=== PATIENT | male | born 1955 | race Caucasian/White ===

== ENCOUNTER 2017-10-03 19:09 | Observation (INO) | payer OTHER, SELFPAY ==
[2017-10-03] VITALS (13 sets, daily range): BP systolic 125–192; BP diastolic 63–108; PULSE 60–78; RESP 16–18; TEMP 36.2–36.7; O2SAT 95–96; BMI 30.2; BMI 29.7
--- NOTE | 2017-10-03 19:24 | RAD_ITS ---
STUDY: X-RAY CHEST REASON FOR EXAM: Male, 62 years old. Chest pain TECHNIQUE: Single AP portable view of the chest. COMPARISON: None. FINDINGS: The lungs are clear and expanded. There is no demonstrated pleural abnormality. Normal size heart. Normal mediastinum and griselda. Normal visualized pulmonary arteries. Normal visualized aortic arch and descending thoracic aorta. Normal visualized thoracic spine. Normal visualized ribs, clavicles, and shoulders. There is no demonstrated abnormality of the visualized soft tissue structures of the upper abdomen. RAD/Chest 1 View (Portable) IMPRESSION: Normal x-ray examination of the chest. Electronically Signed: Cj Washington MD at 19:56 EDT , Service support ,
--- NOTE | 2017-10-03 19:24 | EKG12_ITS ---
Test Reason : CP Blood Pressure : / mmHG Vent. Rate : 072 BPM Atrial Rate : 072 BPM P-R Int : 154 ms QRS Dur : 078 ms QT Int : 380 ms P-R-T Axes : 054 046 061 degrees QTc Int : 416 ms Normal sinus rhythm Nonspecific T wave abnormality Abnormal ECG Confirmed by RAJAT SCHREIBER MD ([id number]), supervising editor news reel EUNICE RAY ([id number]) on 10/06/2017 2:30:31 PM Referred By: CONCHIS Confirmed By:RAJAT SCHREIBER MD
--- NOTE | 2017-10-03 19:25 | ED.VISSUMM ---
- ER Visit Summary Date of Service: 10/03/17 Chief Complaint: Chest pain History of Present Illness: The patient is a 62 M sudden substernal chest pain starting 2 hours ago. Symptoms started after eating shoveling dirt. Pain into his upper back. States was nausea, shortness of breath, and had some sweats. No IA history. History of diabetes and hypercholesterolemia. No tobacco history. No family history of IA at young age. States had a left DVT 4 years ago after surgery. Was on anticoagulation at that time. No stress test in over 10 years. Denies previous similar symptoms in the past. Did take a baby aspirin prior to arrival. States pain is a 5 out of 10 currently. Physical Examination: General: Alert and oriented ?3, no acute distress HEENT: Normocephalic, atraumatic. Moist mucosa membranes Neck: supple, nontender. Cardiovascular: Regular rate and rhythm, no murmurs Respiratory: Normal breath sounds, symmetric, no distress Abdomen: Soft, nontender, nondistended Extremities: Nontender, no edema, pulses intact ?4 Neuro: no focal neurological deficits. is Test Results: EKG: Sinus rate of 72. No ST changes. T-wave bimodal anterior leads. Chest x-ray negative. Cardiac workup including troponin negative Emergency Department Course and Treatment: EKG noted T-wave bimodal changes on the anterior leads. No old for comparison. Cardiac workup initiated. This is negative. Given additional aspirin, nitro ?2 sublingual with improvement of symptoms. Nitro paste was placed. Heart scores a 5. SHANTANU scores a 1. Discuss with hospitalist for admission for cardiac rule out. Treatment Plan: [] Disposition: Admission Impression: 1. Acute chest pain 2. Abnormal EKG This note was generated with [employer] dictation software. It may contain incorrect words, spelling, and punctuation that were not noted in review of the chart prior to signing ED Disposition - Plan for ED Patient: Disposition: Acute Care Hospital [facility] Chief Complaint: Chest Pain Diagnosis: Acute chest pain, Abnormal EKG
--- NOTE | 2017-10-03 19:29 | ED.DCSUM_ITS ---
- ER Visit Summary Date of Service: 10/03/17 Chief Complaint: Chest pain History of Present Illness: The patient is a 62 M sudden substernal chest pain starting 2 hours ago. Symptoms started after eating shoveling dirt. Pain into his upper back. States was nausea, shortness of breath, and had some sweats. No NV history. History of diabetes and hypercholesterolemia. No tobacco history. No family history of NV at young age. States had a left DVT 4 years ago after surgery. Was on anticoagulation at that time. No stress test in over 10 years. Denies previous similar symptoms in the past. Did take a baby aspirin prior to arrival. States pain is a 5 out of 10 currently. Physical Examination: General: Alert and oriented ?3, no acute distress HEENT: Normocephalic, atraumatic. Moist mucosa membranes Neck: supple, nontender. Cardiovascular: Regular rate and rhythm, no murmurs Respiratory: Normal breath sounds, symmetric, no distress Abdomen: Soft, nontender, nondistended Extremities: Nontender, no edema, pulses intact ?4 Neuro: no focal neurological deficits. is Test Results: EKG: Sinus rate of 72. No ST changes. T-wave bimodal anterior leads. Chest x-ray negative. Cardiac workup including troponin negative Emergency Department Course and Treatment: EKG noted T-wave bimodal changes on the anterior leads. No old for comparison. Cardiac workup initiated. This is negative. Given additional aspirin, nitro ?2 sublingual with improvement of symptoms. Nitro paste was placed. Heart scores a 5. SHANTANU scores a 1. Discuss with hospitalist for admission for cardiac rule out. Treatment Plan: [] Disposition: Admission Impression: 1. Acute chest pain 2. Abnormal EKG This note was generated with [employer] dictation software. It may contain incorrect words, spelling, and punctuation that were not noted in review of the chart prior to signing ED Disposition - Plan for ED Patient: Disposition: Acute Care Hospital [facility] Chief Complaint: Chest Pain Diagnosis: Acute chest pain, Abnormal EKG
[2017-10-03] MEDS: Aspirin 81 MG TAB.CHEW 273 MG PO (19:38)
[2017-10-03 19:57] LABS: Absolute Lymphocyte Count 3.31 X10^3/ul (0.83-4.51); Absolute Neutrophil Count 5.2 X10^3/uL (2.0-7.7); Basophil# 0.04 X10^3/uL; Basophil% 0.4 % (0-1); Eosinophil# 0.21 X10^3/uL; Eosinophils% 2.1 % (0-5); Hematocrit 40.9 % (40-54); Hemoglobin 14.1 g/dl (13.0-16.5); Lymphocyte # 3.31 X10^3/ul (4.0); Lymphocyte % 33.6 % (19-41); Mean Corp Hgb Conc 34.5 g/gl (32-36); Mean Corpuscular Hgb 31.4 pg (27.0-32.0); Mean Corpuscular Volume 91.1 fL (80-94); Mean Platelet Vol. 10.8 fl (6.2-12.0); Monocyte# 1.14 X10^3/uL; Monocyte% 11.6 % (0-10); Neutrophil # 5.15 X10^3/uL (2.7-7.7); Neutrophil % 52.2 % (47-70); POSITIVE COUNT NO; POSITIVE DIFFERENTIAL NO; POSITIVE MORPHOLOGY NO; Platelet Count 307 K/mm3 (150-450); RBC Distribution Width SD 39.6 fl (35.1-43.9); Red Blood Count 4.49 M/mm3 (4.6-6.2); White Blood Count 9.9 K/mm3 (4.4-11.0)
[2017-10-03 20:09] LABS: Anion Gap 9 (5-15); BUN 30 mg/dL (7-18); BUN/Creat Ratio 25.4 RATIO (10-20); Chloride 109 mmol/L (98-107); Creatinine, Serum 1.18 mg/dL (0.70-1.30); EST Glomerular Filtration Rate 66 mL/min (>60); Est Glom Filt Rate - Afr Amer 80 mL/min (>60); Estimated Creatinine Clearance 61.19 ml/min; Glucose 140 mg/dL (74-106); Potassium 3.8 mmol/L (3.5-5.1); Sodium Level 141 mmol/L (136-145)
--- NOTE | 2017-10-03 20:18 | ED.RN ---
Addendum entered by Keri Villalobos 10/03/17 20:37: DR. ZELAYA. Original Note: PT DENIES PAIN AFTER [address] BREWSTER AWARE.
[2017-10-03] MEDS: Nitroglycerin Oint 1 INCH PACKET 0.5 INCH TRANSDERM. (20:24)
--- NOTE | 2017-10-03 20:49 | PCM.HP.STD ---
Problem List (1) HLD (hyperlipidemia) Status: Chronic Qualifiers: Hyperlipidemia type: unspecified Qualified Code(s): E78.5 - Hyperlipidemia, unspecified (2) Obesity (BMI 30.0-34.9) Status: Chronic (3) Diabetes mellitus, type II Status: Chronic Qualifiers: Diabetes mellitus regulatory compliance officer insulin use: without regulatory compliance officer use Diabetes mellitus complication status: without complication Qualified Code(s): E11.9 - Type 2 diabetes mellitus without complications (4) DVT (deep venous thrombosis) Status: Acute Qualifiers: DVT location: lower extremity Affected thrombotic vein of extremity: unspecified vein of extremity Chronicity: chronic Laterality: left Qualified Code(s): I82.502 - Chronic embolism and thrombosis of unspecified deep veins of left lower extremity Comment: DVT LLE following TURP remotely, recurrent DVT LLE following injury. 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 He is normally active with his work. In the ED work-up included AF,HR 60-70s, BP 147/71-->125/64, RR 18, 96% on RA, not marked appearing CBC, BMP w/ Chl 109, BUN/Cr 30/1.18, glucose 140, trop < 0.02, EKG w/ SR with non-specific T wave changes, CXR without acute findings. In the ED patient administered ASA, NG SL and nitrobid. Past Medical History Past Medical History (Chronic Problems): Chronic Problems HLD (hyperlipidemia) (Chronic) Obesity (BMI 30.0-34.9) (Chronic) Diabetes mellitus, type II (Chronic) Allergies azithromycin [From Zithromax] Allergy (Verified 10/03/17 19:18) Unknown Avbrrrn-Udk-Cpq Reductase Inhibitor Allergy (Verified 10/03/17 19:17) Pain in joints Home Medications: Ambulatory Orders Medication Instructions Recorded Cider Vinegar [Apple Cider Vinegar] 300 mg PO DAILY 10/03/17 Glimepiride [Amaryl] 8 mg PO DAILY 10/03/17 [place]-3 Fatty Acids [Fish Oil] 500 mg PO DAILY 10/03/17 Surgical History: - - TURP, left hydrocele surgery. Psychiatric History: No pertinent psych hx Lives: Spouse/ Significant Other, With Family Smoking Status: Never smoker Tobacco Use: Non-smoker Alcohol: Occasional Drugs: None Review of Systems Constitutional: Reports: Fatigue. Denies: Chills, Fever, Weight Change HEENT: Denies: Head Aches, Sinus Congestion, Sinus Drainage Cardiovascular: Reports: Chest Pain, Heaviness. Denies: Palpitations Respiratory: Reports: Shortness of Breath, Shortness of breath at rest, Shortness of breath upon exertion. Denies: Cough, Sputum production Gastrointestinal: Reports: Nausea. Denies: Abdominal Pain, Vomiting Genitourinary: Denies: Dysuria Musculoskeletal: Denies: Joint Pain, Joint Tenderness Skin: Denies: Rash, Wounds Neurological: Denies: Numbness, Tingling, Focal weakness Psychiatric: Denies: Anxiety, Depression, Homicidal Ideations, Suicidal Ideations Hematologic/ Lymphatic: Denies: Easy Bruising, Easy Bleeding VTE Information - Inpt Only VTE Present on Admission: No VTE Mechan Device Prophylaxis: SCD's VTE Pharm Prophylaxis ordered?: Yes Patient Problems: Active and Suspected Problems DVT (deep venous thrombosis) (Acute) DVT LLE following TURP remotely, recurrent DVT LLE following injury. Chest pain (Acute) Subjective: Seated upright in the ED bed, NAD, notes chest pain currently resolved. Objective: Physical Examination: General: awake, alert, oriented x 3 and cooperative, seated upright in bed in no apparent distress. Skin: normal color, turgor, no icterus, cyanosis, mild facial and scalp sunburn. HEENT: AT/NC, EOMI, PERRLA, mildly dry MM, no carotid bruits or JVD noted. Lungs: CTA bilaterally, moderate effort, mild decrease BL bases, no rales, ronchi or wheezing. Heart: Regular rate and rhythm; no gallop, rub audible. Abdomen: soft, obese, NTTP, ND, normal BS, no HSM. Extremities: no cyanosis, clubbing, or edema. Neurological: patient awake, alert, oriented x 3; cognitive function intact; pupils equally reactive to light and accomodation; cranial nerves II-XII grossly normal, moving all 4 extremities, no focal deficits, strength preserved. Psychiatric: affect appears normal, no acute evidence of depressive or anxiety feelings. - Physical Exam Vital Signs Temp Pulse Resp BP Pulse Ox 97.1 F L 64 18 126/68 H 96 10/03/17 19:10 10/03/17 20:24 10/03/17 20:16 10/03/17 20:24 10/03/17 20:16 Oxygen Delivery Method Room Air Weight: 199 lb 1.239 oz Body Mass Index (BMI) 30.2 Laboratory Tests Past 24 Hrs 10/03/17 10/03/17 19:11 19:11 WBC 9.9 RBC 4.49 L Hgb 14.1 Hct 40.9 MCV 91.1 MCH 31.4 MCHC 34.5 RDW 12.0 RDW Differential 39.6 Plt Count 307 MPV 10.8 Immature Gran % (Auto) 0.100 Neut % (Auto) 52.2 Lymph % (Auto) 33.6 [place] % (Auto) 11.6 H Eos % (Auto) 2.1 Baso % (Auto) 0.4 Absolute Neuts (auto) 5.2 Absolute Lymphs (auto) 3.31 Total Counted Not Reportable Sodium 141 Potassium 3.8 Chloride 109 H Carbon Dioxide 23.0 Anion Gap 9 BUN 30 H Creatinine 1.18 Estim Creat Clear Calc 61.19 Est GFR (MDRD) Af Amer 80 Est GFR (MDRD) Non-Af 66 BUN/Creatinine Ratio 25.4 H Glucose 140 H Calcium 9.0 Troponin I < 0.02 Assessment/Plan Active and Suspected Problems DVT (deep venous thrombosis) (Acute) DVT LLE following TURP remotely, recurrent DVT LLE following injury. 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 (1) Chest Pain: EKG in ED SR with non-specific T wave changes, CXR w/ no acute process, initial trop normal x 1. Will admit to PCU, place on a monitored bed to assure no acute myocardial infarction with serial cardiac enzymes and EKGs. Patient is able to perform exercise and does not have LBBB or V-pacing but does have ST-T changes with unclear wall motion abnormality at rest thus will proceed with AM nuclear exercise stress test. ASA, NG, morphine. FLP in AM. Mag pending. Given mild BUN increase, recent notable outside activity w/ elevated outside T, will given 1L NS upon admission. (2) Diabetes mellitus type II: Hold oral home regimen, ADA diet until NPO Thursday evening, accu checks w/ ISS, nutrition consulted for education and teaching. (3) Obesity: Weight loss and lifestyle changes encouraged, nutrition consulted for education and teaching. (5) Hyperlipidemia: Not on statin regimen. Hold lovaza, continue upon discharge. AM FLP. (6) History of Provoked LLE DVT: Noted history LLE DVT x 2 following surgery and injury, prophylaxis as noted. (7) History of Prostate CA: Noted dx ~ 11 years prior, s/p TURP, stable. (8) DVT Prophylaxis: SCDs, lovenox. Code Visit OBSV E&M: [id number] Initial observation care L3
--- NOTE | 2017-10-03 21:00 | HP.PCM_ITS ---
Problem List (1) HLD (hyperlipidemia) Status: Chronic Qualifiers: Hyperlipidemia type: unspecified Qualified Code(s): E78.5 - Hyperlipidemia , unspecified (2) Obesity (BMI 30.0-34.9) Status: Chronic (3) Diabetes mellitus, type II Status: Chronic Qualifiers: Diabetes mellitus prison insulin use: without terminal supervisor use Diabetes mellitus complication status: without complication Qualified Code(s): E11.9 - Type 2 diabetes mellitus without complications (4) DVT (deep venous thrombosis) Status: Acute Qualifiers: DVT location: lower extremity Affected thrombotic vein of extremity: unspecified vein of extremity Chronicity: chronic Laterality: left Qualified Code(s): I82.502 - Chronic embolism and thrombosis of unspecified deep veins of left lower extremity Comment: DVT LLE following TURP remotely, recurrent DVT LLE following injury. 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 He is normally active with his work. In the ED work-up included AF,HR 60-70s, BP 147/71-->125/64, RR 18, 96% on RA, not marked appearing CBC, BMP w/ Chl 109, BUN/Cr 30/1.18, glucose 140, trop < 0.02, EKG w/ SR with non-specific T wave changes, CXR without acute findings. In the ED patient administered ASA, NG SL and nitrobid. Past Medical History Past Medical History (Chronic Problems): Chronic Problems HLD (hyperlipidemia) (Chronic) Obesity (BMI 30.0-34.9) (Chronic) Diabetes mellitus, type II (Chronic) Allergies azithromycin [From Zithromax] Allergy (Verified 10/03/17 19:18) Unknown Epljnrq-Biq-Dxf Reductase Inhibitor Allergy (Verified 10/03/17 19:17) Pain in joints Home Medications: Ambulatory Orders Medication Instructions Recorded Cider Vinegar [Apple Cider Vinegar] 300 mg PO DAILY 10/03/17 Glimepiride [Amaryl] 8 mg PO DAILY 10/03/17 [place]-3 Fatty Acids [Fish Oil] 500 mg PO DAILY 10/03/17 Surgical History: - - TURP, left hydrocele surgery. Psychiatric History: No pertinent psych hx Lives: Spouse/ Significant Other, With Family Smoking Status: Never smoker Tobacco Use: Non-smoker Alcohol: Occasional Drugs: None Review of Systems Constitutional: Reports: Fatigue. Denies: Chills, Fever, Weight Change HEENT: Denies: Head Aches, Sinus Congestion, Sinus Drainage Cardiovascular: Reports: Chest Pain, Heaviness. Denies: Palpitations Respiratory: Reports: Shortness of Breath, Shortness of breath at rest, Shortness of breath upon exertion. Denies: Cough, Sputum production Gastrointestinal: Reports: Nausea. Denies: Abdominal Pain, Vomiting Genitourinary: Denies: Dysuria Musculoskeletal: Denies: Joint Pain, Joint Tenderness Skin: Denies: Rash, Wounds Neurological: Denies: Numbness, Tingling, Focal weakness Psychiatric: Denies: Anxiety, Depression, Homicidal Ideations, Suicidal Ideations Hematologic/ Lymphatic: Denies: Easy Bruising, Easy Bleeding VTE Information - Inpt Only VTE Present on Admission: No VTE Mechan Device Prophylaxis: SCD's VTE Pharm Prophylaxis ordered?: Yes Patient Problems: Active and Suspected Problems DVT (deep venous thrombosis) (Acute) DVT LLE following TURP remotely, recurrent DVT LLE following injury. Chest pain (Acute) Subjective: Seated upright in the ED bed, NAD, notes chest pain currently resolved. Objective: Physical Examination: General: awake, alert, oriented x 3 and cooperative, seated upright in bed in no apparent distress. Skin: normal color, turgor, no icterus, cyanosis, mild facial and scalp sunburn. HEENT: AT/NC, EOMI, PERRLA, mildly dry MM, no carotid bruits or JVD noted. Lungs: CTA bilaterally, moderate effort, mild decrease BL bases, no rales, ronchi or wheezing. Heart: Regular rate and rhythm; no gallop, rub audible. Abdomen: soft, obese, NTTP, ND, normal BS, no HSM. Extremities: no cyanosis, clubbing, or edema. Neurological: patient awake, alert, oriented x 3; cognitive function intact; pupils equally reactive to light and accomodation; cranial nerves II-XII grossly normal, moving all 4 extremities, no focal deficits, strength preserved. Psychiatric: affect appears normal, no acute evidence of depressive or anxiety feelings. - Physical Exam Vital Signs Temp Pulse Resp BP Pulse Ox 97.1 F L 64 18 126/68 H 96 10/03/17 19:10 10/03/17 20:24 10/03/17 20:16 10/03/17 20:24 10/03/17 20:16 Oxygen Delivery Method Room Air Weight: 199 lb 1.239 oz Body Mass Index (BMI) 30.2 Laboratory Tests Past 24 Hrs 10/03/17 10/03/17 19:11 19:11 WBC 9.9 RBC 4.49 L Hgb 14.1 Hct 40.9 MCV 91.1 MCH 31.4 MCHC 34.5 RDW 12.0 RDW Differential 39.6 Plt Count 307 MPV 10.8 Immature Gran % (Auto) 0.100 Neut % (Auto) 52.2 Lymph % (Auto) 33.6 [place] % (Auto) 11.6 H Eos % (Auto) 2.1 Baso % (Auto) 0.4 Absolute Neuts (auto) 5.2 Absolute Lymphs (auto) 3.31 Total Counted Not Reportable Sodium 141 Potassium 3.8 Chloride 109 H Carbon Dioxide 23.0 Anion Gap 9 BUN 30 H Creatinine 1.18 Estim Creat Clear Calc 61.19 Est GFR (MDRD) Af Amer 80 Est GFR (MDRD) Non-Af 66 BUN/Creatinine Ratio 25.4 H Glucose 140 H Calcium 9.0 Troponin I < 0.02 Assessment/Plan Active and Suspected Problems DVT (deep venous thrombosis) (Acute) DVT LLE following TURP remotely, recurrent DVT LLE following injury. 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 (1) Chest Pain: EKG in ED SR with non-specific T wave changes, CXR w/ no acute process, initial trop normal x 1. Will admit to PCU, place on a monitored bed to assure no acute myocardial infarction with serial cardiac enzymes and EKGs. Patient is able to perform exercise and does not have LBBB or V-pacing but does have ST-T changes with unclear wall motion abnormality at rest thus will proceed with AM nuclear exercise stress test. ASA, NG, morphine. FLP in AM. Mag pending. Given mild BUN increase, recent notable outside activity w/ elevated outside T, will given 1L NS upon admission. (2) Diabetes mellitus type II: Hold oral home regimen, ADA diet until NPO Thursday evening, accu checks w/ ISS, nutrition consulted for education and teaching. (3) Obesity: Weight loss and lifestyle changes encouraged, nutrition consulted for education and teaching. (5) Hyperlipidemia: Not on statin regimen. Hold lovaza, continue upon discharge. AM FLP. (6) History of Provoked LLE DVT: Noted history LLE DVT x 2 following surgery and injury, prophylaxis as noted. (7) History of Prostate CA: Noted dx ~ 11 years prior, s/p TURP, stable. (8) DVT Prophylaxis: SCDs, lovenox. Code Visit OBSV E&M: 97120 Initial observation care L3
[2017-10-03 22:25] LABS: Magnesium 1.9 mg/dL (1.6-2.6)
[2017-10-03] MEDS: Famotidine 20 MG Tablet PO (23:01)
[2017-10-03] MEDS: 0.9% Normal Saline 1,000 ML 125 ML IV (23:01)
[2017-10-03 23:10] LABS: Bedside Glucose 279 mg/dL (70-110)
[2017-10-04] VITALS (11 sets, daily range): BP systolic 120–157; BP diastolic 57–80; PULSE 50–63; RESP 16–20; TEMP 36.3–36.6; O2SAT 95–98
[2017-10-04 03:04] LABS: Hematocrit 38.4 % (40-54); Mean Corp Hgb Conc 33.9 g/gl (32-36); Mean Corpuscular Hgb 31.2 pg (27.0-32.0); Mean Corpuscular Volume 92.1 fL (80-94); Mean Platelet Vol. 10.1 fl (6.2-12.0); Platelet Count 269 K/mm3 (150-450); RBC Distribution Width SD 39.8 fl (35.1-43.9); Red Blood Count 4.17 M/mm3 (4.6-6.2); White Blood Count 7.3 K/mm3 (4.4-11.0)
[2017-10-04 03:09] LABS: Scan Indicated on CBC? Y/N NO
[2017-10-04 03:45] LABS: Anion Gap 6 (5-15); BUN 23 mg/dL (7-18); BUN/Creat Ratio 23.2 RATIO (10-20); Calcium,Total 8.2 mg/dL (8.5-10.1); Chloride 107 mmol/L (98-107); Cholesterol 186 mg/dL (200); Creatinine, Serum 0.99 mg/dL (0.70-1.30); EST Glomerular Filtration Rate 81 mL/min (>60); Est Glom Filt Rate - Afr Amer 97 mL/min (>60); Estimated Creatinine Clearance 72.93 ml/min; Glucose 169 mg/dL (74-106); High Density Lipoprotein 38 mg/dL; Potassium 3.8 mmol/L (3.5-5.1); Sodium Level 141 mmol/L (136-145); Triglycerides 93 mg/dL; Very Low Density Lipoprotein 19 mg/dL (5-40)
--- NOTE | 2017-10-04 05:55 | EKG12_ITS ---
Test Reason : MORNING EKG Blood Pressure : / mmHG Vent. Rate : 052 BPM Atrial Rate : 052 BPM P-R Int : 174 ms QRS Dur : 090 ms QT Int : 440 ms P-R-T Axes : 055 051 047 degrees QTc Int : 409 ms Sinus bradycardia Nonspecific T wave abnormality Abnormal ECG Confirmed by ZAHRA GUPTA ([id number]), editor farm journal EUNICE RAY ([id number]) on 10/08/2017 3:04:07 PM Referred By: Confirmed By:ZAHRA GUPTA
[2017-10-04 06:55] LABS: Bedside Glucose 195 mg/dL (70-110)
[2017-10-04] MEDS: Aspirin E.C. 81 MG Tablet PO (09:07)
[2017-10-04] MEDS: Famotidine 20 MG Tablet PO ×2 (09:07→22:08)
[2017-10-04] MEDS: Enoxaparin 40 MG/0.4 ML Syringe SC (09:07)
[2017-10-04 09:14] LABS: Hemoglobin A1c 8.9 % (4.2-6.3)
[2017-10-04 11:56] LABS: Bedside Glucose 227 mg/dL (70-110)
[2017-10-04 16:45] LABS: Bedside Glucose 184 mg/dL (70-110)
--- NOTE | 2017-10-04 18:13 | PN_ITS ---
Patient Problems: Active and Suspected Problems Chest pain (Acute) Acute chest pain (Acute) Subjective: Patient was seen and examined today, he denies any chest pain at this time, patient's cardiac enzymes are unremarkable. Patient feels that his chest pain could have been caused by some vigorous shoveling that he had been doing at home. Patient's hemoglobin A1c was elevated at 8.9-he admits to this examiner that he does not follow-up with his PCP as directed concerning his diabetes and he has not been compliant with his diet at home. I urged him that he should follow-up after his discharge from the hospital with his PCP to go over his diabetic medications and perhaps have an additional one added such as Victoza or Jardiance. Patient had been on metformin before but he was off it for a while and when he resumed it, he had abdominal cramping and diarrhea so he stopped this medication. - Physical Exam General: Alert, Oriented x3, Cooperative, No apparent distress, Well developed, Well nourished HEENT: Atraumatic, PERRLA, EOMI, Normocephalic Oral: Moist Mucosa Neck: Supple, No JVD, No Nuchal Rigidity, Trachea Midline, Thyroid Normal Size and Texture Lungs: Clear to auscultation, Normal air movement, No rhonchi, No wheeze, No rales Cardiovascular: Regular rate, Regular Rhythm, Normal S1, Normal S2, No murmurs, No Ectopic Activity Abdomen: Bowel Sounds Present, Soft, Non Tender, Non-Distended, No hernias noted Extremities: No clubbing, No cyanosis, No edema, Capillary Refill Less than 3 Seconds Skin: No rashes, No breakdown Musculoskeletal: No Tenderness to Palpation of Joints or Extremities Neurological: Cranial nerves II-XII grossly intact, Neuro grossly intact, Muscle tone normal, Sensory exam intact to light touch and pain, Coordination normal Psych/Mental Status: Normal Affect, Appropriate, Alert and oriented to time, place, person, mood and affect Vital Signs Temp Pulse Resp BP Pulse Ox 97.5 F L 63 18 157/75 H 98 10/04/17 15:00 10/04/17 15:03 10/04/17 15:00 10/04/17 15:00 10/04/17 15:00 Oxygen Delivery Method Room Air Weight: 88.7 kg Body Mass Index (BMI) 29.7 Intake and Output for Last 24 Hours 10/02/17 10/03/17 10/04/17 23:59 23:59 23:59 Intake Total 200 / 200 1068 / 1068 Balance 200 / 200 1068 / 1068 Laboratory Tests Past 24 Hrs 10/03/17 10/04/17 10/04/17 23:28 02:49 02:49 WBC 7.3 RBC 4.17 L Hgb 13.0 Hct 38.4 L MCV 92.1 MCH 31.2 MCHC 33.9 RDW 12.0 RDW Differential 39.8 Plt Count 269 MPV 10.1 Sodium 141 Potassium 3.8 Chloride 107 Carbon Dioxide 28.0 Anion Gap 6 BUN 23 H Creatinine 0.99 Estim Creat Clear Calc 72.93 Est GFR (MDRD) Af Amer 97 Est GFR (MDRD) Non-Af 81 BUN/Creatinine Ratio 23.2 H Glucose 169 H Hemoglobin A1c Calcium 8.2 L Troponin I < 0.02 Triglycerides 93 Cholesterol 186 LDL Cholesterol 129 VLDL Cholesterol 19 HDL Cholesterol 38 L 10/04/17 10/04/17 10/04/17 02:49 02:49 09:00 WBC RBC Hgb Hct MCV MCH MCHC RDW RDW Differential Plt Count MPV Sodium Potassium Chloride Carbon Dioxide Anion Gap BUN Creatinine Estim Creat Clear Calc Est GFR (MDRD) Af Amer Est GFR (MDRD) Non-Af BUN/Creatinine Ratio Glucose Hemoglobin A1c 8.9 H Calcium Troponin I < 0.02 < 0.02 Triglycerides Cholesterol LDL Cholesterol VLDL Cholesterol HDL Cholesterol POC Glucose 10/04/17 10/04/17 10/04/17 16:36 11:29 06:45 POC Glucose 184 H 227 H 195 H 10/03/17 23:00 POC Glucose 279 H Medical Necessity - Tobacco Use Smoking Status: Never smoker Tobacco Use: Non-smoker Assessment/Plan Active and Suspected Problems Chest pain (Acute) Acute chest pain (Acute) #1 precordial chest pain-etiology unclear, patient has negative cardiac enzymes , he will have an exercise nuclear stress test tomorrow #2 uncontrolled type 2 diabetes-partially secondary to noncompliance with medical regimen, again patient has been urged to follow-up with his physician regarding his diabetes immediately after discharge from the hospital, I recommended that he go on either Victoza or Jardiance in addition to his present Amaryl, I also recommended that he follow his diet carefully which he is not doing. I feel the patient should be taking a dose of lisinopril for renal protection also-he is not on lisinopril. He will need to follow-up with his PCP regarding this #3 hyperlipidemia-patient should be on a statin, I will have nursing asked the patient what kind of an allergy he has to statins Code Visit OBSV E&M: 45911 Subsequent observation care L3
--- NOTE | 2017-10-04 18:56 | NURSING ---
Reviewed and agreed on all charting with Briana Moser RN
[2017-10-04 22:15] LABS: Bedside Glucose 164 mg/dL (70-110)
[2017-10-05 03:00] VITALS: BP 130/58; PULSE 57; PULSE 61; RESP 16; TEMP 36.9; O2SAT 96
[2017-10-05 04:22] LABS: Hematocrit 43.1 % (40-54); Hemoglobin 14.4 g/dl (13.0-16.5); Mean Corp Hgb Conc 33.4 g/gl (32-36); Mean Corpuscular Hgb 30.8 pg (27.0-32.0); Mean Corpuscular Volume 92.3 fL (80-94); Platelet Count 279 K/mm3 (150-450); RBC Distribution Width CV 12.3 % (11.6-14.6); RBC Distribution Width SD 41.1 fl (35.1-43.9); Red Blood Count 4.67 M/mm3 (4.6-6.2); White Blood Count 7.3 K/mm3 (4.4-11.0)
[2017-10-05 04:27] LABS: Scan Indicated on CBC? Y/N NO
[2017-10-05 04:36] LABS: Prothrombin Time (Protime)PT. 13.5 SECONDS (11.7-14.9)
[2017-10-05 04:37] LABS: Partial Thromboplast Time 28.9 Seconds (24.1-36.2)
[2017-10-05 05:08] LABS: Anion Gap 5 (5-15); BUN 13 mg/dL (7-18); BUN/Creat Ratio 11.9 RATIO (10-20); Calcium,Total 8.5 mg/dL (8.5-10.1); Chloride 105 mmol/L (98-107); Creatinine, Serum 1.09 mg/dL (0.70-1.30); EST Glomerular Filtration Rate 72 mL/min (>60); Est Glom Filt Rate - Afr Amer 87 mL/min (>60); Estimated Creatinine Clearance 66.24 ml/min; Glucose 182 mg/dL (74-106); Potassium 4.2 mmol/L (3.5-5.1); Sodium Level 140 mmol/L (136-145)
--- NOTE | 2017-10-05 05:55 | EKG12_ITS ---
Test Reason : AM Blood Pressure : / mmHG Vent. Rate : 058 BPM Atrial Rate : 058 BPM P-R Int : 152 ms QRS Dur : 088 ms QT Int : 418 ms P-R-T Axes : 019 049 043 degrees QTc Int : 410 ms Sinus bradycardia Otherwise normal ECG Confirmed by ZAHRA GUPTA ([id number]), photograph editor EUNICE RAY ([id number]) on 10/08/2017 3:05:35 PM Referred By: EDWIN Confirmed By:ZAHRA GUPTA
[2017-10-05] MEDS: Aspirin E.C. 81 MG Tablet PO (05:56)
[2017-10-05 06:00] VITALS: BP 136/62; PULSE 58; RESP 16; TEMP 36.8; O2SAT 97
[2017-10-05 06:06] LABS: Bedside Glucose 212 mg/dL (70-110)
[2017-10-05 08:15] VITALS: O2SAT 97
[2017-10-05 08:29] VITALS: PULSE 68
--- NOTE | 2017-10-05 09:44 | STRESSREP_ITS ---
Stress Test Report Exercise myocardial perfusion stress test. 62-year-old man with a history of chest pain. Medications aspirin Pepcid. Stress protocol: Resting EKG demonstrates normal sinus rhythm with a rate of 60 bpm normal intervals and noted resting blood pressure is 140/82 mmHg. The patient exercised according to the regular José Luis protocol for total duration of 7 minutes and 45 seconds the maximum heart rate attained was 151 bpm which was 96 % maximum predicted heart rate the maximum workload attained was 9.7 metabolic equivalents. At rest there were no ST or T-wave changes noted suggest ischemia peak exercise upsloping ST changes only were noted with no meet the criteria for ischemia. No clinical angina was noted the test was terminated due to leg fatigue. Myocardial perfusion protocol. 11.8 mCi of technetium 99m sestamibi was injected at rest. The patient exercised according to regular José Luis protocol for 7 minutes and 45 seconds attaining 96% maximum predicted heart rate at peak exercise 33.1 mCi of technetium 99m sestamibi was injected stress images were obtained stress and rest images were reconstructed and compared in the short axis vertical long and horizontal long axis. Gated images were also obtained. Perfusion SPECT analysis: Review of the stress images demonstrate normal uptake of tracer noted in all areas of the myocardium. The resting images similarly demonstrate normal uptake of tracer noted in all areas of the myocardium. No obvious areas of reversibility are noted suggest ischemia no previous infarct is noted. Gated SPECT analysis: The gated ejection fraction is 77%. Conclusion: Normal exercise myocardial perfusion stress test at a high workload. No clinical angina. Preserved ejection fraction.
[2017-10-05 10:55] LABS: Bedside Glucose 187 mg/dL (70-110)
[2017-10-05 11:12] VITALS: PULSE 70
--- NOTE | 2017-10-05 11:42 | DCINST_ITS ---
- Discharge Diagnoses Current Active Problems: Current Active and Chronic Problems HLD (hyperlipidemia) (Chronic) Obesity (BMI 30.0-34.9) (Chronic) Diabetes mellitus, type II (Chronic) Chest pain (Acute) Acute chest pain (Acute) You will use the following diet at home:: Calorie/Carbohydrate Controlled ( specify 1200, 1400, etc), Cardiac Discharge Activity: Return to Normal Activity Call your doctor if you observe: Shortness of breath, Dizziness, Fainting spells , Chest pain, Increased palpitations (irregular heartbeat) Allergies/Adverse Reactions: Allergies azithromycin [From Zithromax] Allergy (Verified 10/03/17 19:18) Unknown Yfeigdc-Hfr-Sct Reductase Inhibitor Allergy (Verified 10/03/17 19:17) Pain in joints Medications to take at Discharge Cider Vinegar [Apple Cider Vinegar] 300 mg PO DAILY 10/03/17 Glimepiride [Amaryl] 8 mg PO DAILY 10/03/17 [place]-3 Fatty Acids [Fish Oil] 500 mg PO DAILY 10/03/17 Metformin HCl 500 mg PO DAILY #30 tab 10/05/17 The following prescriptions were given: Metformin HCl 500 mg PO DAILY #30 tab Primary Care Physician: [facility],Out of [NON-STAFF] - Please follow up with your Primary Care Physician in: 1 Week Proposed Discharge Date: 10/05/17
--- NOTE | 2017-10-05 11:42 | PCM.WORK.EX ---
Work/School Excuse Work/School Excuse for:: Patient Please excuse this person from:: Work From: 10/03/17 through: 10/06/17 - May return 10/07/17.
--- NOTE | 2017-10-05 11:43 | PCM.DC.SUM ---
<Citlali Cutler - Last Filed: 10/05/17 11:50> Discharge Date and Diagnosis Date of Admission: 10/03/17 Date of Discharge: 10/05/17 - Primary Discharge Diagnosis Active and Suspected Problems 1. Chest pain- ACS ruled out - Secondary Discharge Diagnosis Chronic Problems HLD (hyperlipidemia) (Chronic) Obesity (BMI 30.0-34.9) (Chronic) Diabetes mellitus, type II (Chronic) History of prostate cancer History of provoked left lower extremity DVT Hospital Course and Treatment Imaging Results: Diagnostic Data Chest X-Ray 10/03/17 19:24 IMPRESSION: Normal x-ray examination of the chest. Electronically Signed: Cj Washington MD at 19:56 EDT , Service support , Operations: None Procedures: Stress test Summary of Care Provided: Patient is a 62-year-old male admitted 10/03/17 due to chest pain. He has a past medical history of hyperlipidemia, type 2 diabetes mellitus, history of provoked left lower extremity DVT, history of prostate cancer, and obesity. EKG and ER sinus rhythm with nonspecific T changes. Chest x-ray unremarkable. Troponin negative. Patient underwent nuclear stress test which was negative for ischemia. Recommend continued risk factor modification. Hemoglobin A1c 8.9%. Patient was started on metformin 500 mg daily in addition to his Amaryl regimen. Recommend further monitoring and adjustment by primary care physician. He has a reported allergy to statin. Lipid panel shows good control. Patient could increase omega-3 fatty acid supplementation or attempt fenofibrate. Other chronic medical conditions as noted above are stable at this time. Patient will follow up with primary care physician in 1 week. Patient seen and examined prior to discharge. Heart rate regular in rate and rhythm, no murmurs. Lungs clear. Abdomen soft, nontender. Neuro grossly intact. Vital signs stable. Patient is stable for discharge home with recommendations as noted above. This patient was seen by MARIA M Mariano under the supervision of Dr. John. Discharge Diet: Low fat/ Low Cholesterol, Carb Control Diet Discharge Activity: Return to Normal Activity Call your doctor if you observe: Shortness of breath, Dizziness, Fainting spells, Chest pain, Increased palpitations (irregular heartbeat) Home Medications: Medications to take at Discharge Purnima Erwinegar [Apple Cider Vinegar] 300 mg PO DAILY 10/03/17 Glimepiride [Amaryl] 8 mg PO DAILY 10/03/17 [place]-3 Fatty Acids [Fish Oil] 500 mg PO DAILY 10/03/17 Metformin HCl 500 mg PO DAILY #30 tab 10/05/17 Following Prescrptions Were Given to Patient: Metformin HCl 500 mg PO DAILY #30 tab Primary Care Physician: [facility],Out of [NON-STAFF] - Please follow up with your Primary Care Physician in: 1 Week Disposition: Home Minutes spent on discharge:: 35 Patient Condition:: Stable Medical Necessity - Tobacco Use Smoking Status: Never smoker Tobacco Use: Non-smoker Meaningful Use Info Meaningful Use Diagnoses (Choose all that apply): None applicable <Kandice John - Last Filed: 10/05/17 15:43> Discharge Date and Diagnosis - Secondary Discharge Diagnosis Chronic Problems HLD (hyperlipidemia) (Chronic) Obesity (BMI 30.0-34.9) (Chronic) Diabetes mellitus, type II (Chronic) Hospital Course and Treatment Summary of Care Provided: The patient is a 62 year old M [] Minutes spent on discharge:: 35 Code Visit OBSV E&M: 43466 Observation care discharge
--- NOTE | 2017-10-05 11:50 | DS.PCM_ITS ---
<Citlali Cutler - Last Filed: 10/05/17 11:50> Discharge Date and Diagnosis Date of Admission: 10/03/17 Date of Discharge: 10/05/17 - Primary Discharge Diagnosis Active and Suspected Problems 1. Chest pain- ACS ruled out - Secondary Discharge Diagnosis Chronic Problems HLD (hyperlipidemia) (Chronic) Obesity (BMI 30.0-34.9) (Chronic) Diabetes mellitus, type II (Chronic) History of prostate cancer History of provoked left lower extremity DVT Hospital Course and Treatment Imaging Results: Diagnostic Data Chest X-Ray 10/03/17 19:24 IMPRESSION: Normal x-ray examination of the chest. Electronically Signed: Cj Washington MD at 19:56 EDT , Service support , Operations: None Procedures: Stress test Summary of Care Provided: Patient is a 62-year-old male admitted 10/03/17 due to chest pain. He has a past medical history of hyperlipidemia, type 2 diabetes mellitus, history of provoked left lower extremity DVT, history of prostate cancer, and obesity. EKG and ER sinus rhythm with nonspecific T changes. Chest x-ray unremarkable. Troponin negative. Patient underwent nuclear stress test which was negative for ischemia. Recommend continued risk factor modification. Hemoglobin A1c 8.9 %. Patient was started on metformin 500 mg daily in addition to his Amaryl regimen. Recommend further monitoring and adjustment by primary care physician. He has a reported allergy to statin. Lipid panel shows good control. Patient could increase omega-3 fatty acid supplementation or attempt fenofibrate. Other chronic medical conditions as noted above are stable at this time. Patient will follow up with primary care physician in 1 week. Patient seen and examined prior to discharge. Heart rate regular in rate and rhythm, no murmurs. Lungs clear. Abdomen soft, nontender. Neuro grossly intact. Vital signs stable. Patient is stable for discharge home with recommendations as noted above. This patient was seen by MARIA M Mariano under the supervision of Dr. John. Discharge Diet: Low fat/ Low Cholesterol, Carb Control Diet Discharge Activity: Return to Normal Activity Call your doctor if you observe: Shortness of breath, Dizziness, Fainting spells , Chest pain, Increased palpitations (irregular heartbeat) Home Medications: Medications to take at Discharge Purnima Erwinegar [Apple Cider Vinegar] 300 mg PO DAILY 10/03/17 Glimepiride [Amaryl] 8 mg PO DAILY 10/03/17 [place]-3 Fatty Acids [Fish Oil] 500 mg PO DAILY 10/03/17 Metformin HCl 500 mg PO DAILY #30 tab 10/05/17 Following Prescrptions Were Given to Patient: Metformin HCl 500 mg PO DAILY #30 tab Primary Care Physician: [facility] Doctor,Out of [NON-STAFF] - Please follow up with your Primary Care Physician in: 1 Week Disposition: Home Minutes spent on discharge:: 35 Patient Condition:: Stable Medical Necessity - Tobacco Use Smoking Status: Never smoker Tobacco Use: Non-smoker Meaningful Use Info Meaningful Use Diagnoses (Choose all that apply): None applicable <Kandice John - Last Filed: 10/05/17 15:43> Discharge Date and Diagnosis - Secondary Discharge Diagnosis Chronic Problems HLD (hyperlipidemia) (Chronic) Obesity (BMI 30.0-34.9) (Chronic) Diabetes mellitus, type II (Chronic) Hospital Course and Treatment Summary of Care Provided: The patient is a 62 year old M [] Minutes spent on discharge:: 35 Code Visit OBSV E&M: 17881 Observation care discharge
[2017-10-05 12:04] VITALS: BP 117/67; PULSE 57; RESP 16; TEMP 36.4; O2SAT 98
== END 2017-10-05 12:10 | disposition home or self-care (01) ==
LOC: ED 19:36 → PCU 21:00
PROVIDERS: Internal Medicine; Admitting Provider Family Medicine; Emergency Provider Emergency Medicine; Family Provider Family Medicine; PCP Family Medicine; Visit Provider Internal Medicine
DX: R07.2 Precordial pain (principal); E78.5 Hyperlipidemia, unspecified; E11.65 Type 2 diabetes mellitus with hyperglycemia; R06.02 Shortness of breath; R11.0 Nausea; R94.31 Abnormal electrocardiogram [ECG] [EKG]; E66.9 Obesity, unspecified; Z68.29 Body mass index [BMI] 29.0-29.9, adult; Z86.718 Personal history of other venous thrombosis and embolism; Z91.19 Patient's noncompliance with other medical treatment and regimen; Z71.3 Dietary counseling and surveillance; Z85.46 Personal history of malignant neoplasm of prostate; Z79.84 Long term (current) use of oral hypoglycemic drugs
CPT/HCPCS: 36415; 71045; 78452; 80048; 80061; 82962; 83036; 83735; 84484; 85025; 85027; 85610; 85730; 93005; 93017; 96360; 96361; 96372; 97802; 99218; 99285; A9500; J7030; A4216; G0378